=== PATIENT | male | born 1960 | race Caucasian/White ===

== ENCOUNTER 2022-01-16 11:04 | Outpatient (REF) | payer BC, SELFPAY ==
[2022-01-16 14:16] LABS: MANUAL DIFF FLAG NO
[2022-01-16 14:26] LABS: Basophils Absolute Auto 0.1 X10*3/uL (0.0-0.2); Basophils Percent Auto 0.4 % (0-2); Eosinophils Absolute Auto 0.2 X10*3/uL (0.0-0.4); Eosinophils Percent Auto 1.6 % (0-4); Hematocrit 44.9 % (42.0-52.0); Hemoglobin 15.8 g/dl (14.0-18.0); Imm Gran Abs Auto 0.05 X10*3/uL (0.00-0.03); Imm Gran Pct Auto 0.4 % (0.0-0.4); Lymphocytes Absolute Auto 1.4 X10*3/uL (1.2-4.9); Lymphocytes Percent Auto 12.5 % (20-40); Mean Corpuscular HGB Conc 35.2 g/dl (31.0-36.0); Mean Corpuscular Hemoglobin 31.1 pg (27.0-33.0); Mean Corpuscular Volume 88.4 fL (80.0-98.0); Mean Platelet Volume 9.9 fL (9.4-12.4); Monocytes Percent Auto 8.9 % (2-11); Neutrophils Absolute Auto 8.8 x10*3/uL (2.0-8.3); Neutrophils Percent Auto 76.2 % (45-73); Platelet Count 203 X10*3/uL (160-400); Red Blood Count 5.08 X10*6/uL (4.60-5.80); Red Cell Distribution Width 12.3 % (11.0-16.0); White Blood Count 11.5 X10*3/uL (4.8-10.8)
[2022-01-16 14:32] LABS: Estimated Average Glucose 94 mg/dL; Hemoglobin A1c % 4.9 %
[2022-01-16 14:43] LABS: Alanine Aminotransferase 29 U/L (0-40); Albumin Level 4.3 g/dL (3.5-5.0); Alkaline Phosphatase 67 U/L (39-117); Anion Gap 12 (12-20); Aspartate Amino Transferase 27 U/L (5-37); Bilirubin Total 0.6 mg/dL (0.0-1.0); Blood Urea Nitrogen 14 mg/dL (9-16); Calcium 9.5 mg/dL (8.4-10.2); Carbon Dioxide 30 mmol/L (22-29); Chloride 102 mmol/L (96-108); Cholesterol 191 mg/dL; Estimated Glomerular Filt Rate 58; Glucose Random 104 mg/dL (60-115); HDL Cholesterol 33 mg/dL; LDL Cholesterol Calculated 127 mg/dl; Potassium 4.2 mmol/L (3.3-5.1); Sodium 140 mmol/L (135-145); Total Protein 6.8 g/dL (6.5-8.0); Triglycerides 156 mg/dL
[2022-01-16 15:05] LABS: Thyroid Stimulating Hormone 1.53 uIU/mL (0.32-4.0)
[2022-01-18 09:22] LABS: Free Prostate Spec Ag 0.6 ng/mL; Percent Free Prostate Spec Ag 32 % (calc) (>25); Prostate Specific Ag Total 1.9 ng/mL (< OR = 4.0)
[2022-01-22 00:52] LABS: Lipoprotein A 16 nmol/L (<75)
== END 2022-01-16 11:05 | disposition home or self-care (01) ==
LOC: HO.MANLDS 11:04
PROVIDERS: Visit Provider Physician Assistant
DX: Z12.5 Encounter for screening for malignant neoplasm of prostate (principal); Z82.49 Family history of ischemic heart disease and other diseases of the circulatory system
CPT/HCPCS: 36415; 80053; 80061; 83036; 83695; 84154; 84439; 84443; 85025

== ENCOUNTER 2023-09-10 08:22 | Outpatient (REF) | payer BC, SELFPAY ==
[2023-09-10 13:43] LABS: MANUAL DIFF FLAG NO
[2023-09-10 13:50] LABS: Basophils Absolute Auto 0.1 X10*3/uL (0.0-0.2); Basophils Percent Auto 0.7 % (0-2); Eosinophils Absolute Auto 0.2 X10*3/uL (0.0-0.4); Hematocrit 46.4 % (42.0-52.0); Imm Gran Abs Auto 0.04 X10*3/uL (0.00-0.03); Imm Gran Pct Auto 0.6 % (0.0-0.4); Lymphocytes Absolute Auto 1.6 X10*3/uL (1.2-4.9); Lymphocytes Percent Auto 23.5 % (20-40); Mean Corpuscular HGB Conc 34.5 g/dl (31.0-36.0); Mean Corpuscular Hemoglobin 31.3 pg (27.0-33.0); Mean Corpuscular Volume 90.8 fL (80.0-98.0); Mean Platelet Volume 9.3 fL (9.4-12.4); Monocytes Absolute Auto 0.7 X10*3/uL (0.1-1.2); Monocytes Percent Auto 10.5 % (2-11); Neutrophils Absolute Auto 4.1 x10*3/uL (2.0-8.3); Neutrophils Percent Auto 61.7 % (45-73); Platelet Count 270 X10*3/uL (160-400); Red Blood Count 5.11 X10*6/uL (4.60-5.80); Red Cell Distribution Width 12.6 % (11.0-16.0); White Blood Count 6.7 X10*3/uL (4.8-10.8)
[2023-09-10 14:01] LABS: Alanine Aminotransferase 37 U/L (0-40); Albumin Level 4.2 g/dL (3.5-5.0); Alkaline Phosphatase 64 U/L (39-117); Anion Gap 12 (12-20); Aspartate Amino Transferase 35 U/L (5-37); Bilirubin Total 0.4 mg/dL (0.0-1.0); Blood Urea Nitrogen 13 mg/dL (9-16); Carbon Dioxide 29 mmol/L (22-29); Chloride 104 mmol/L (96-108); Cholesterol 213 mg/dL (<200); Estimated Glomerular Filt Rate 59; Glucose Random 89 mg/dL (60-115); HDL Cholesterol 36 mg/dL (>40); LDL Cholesterol Calculated 152 mg/dL (<100); Potassium 5.1 mmol/L (3.3-5.1); Sodium 140 mmol/L (135-145); Total Protein 7.2 g/dL (6.5-8.0); Triglycerides 128 mg/dL (<150)
[2023-09-10 14:21] LABS: Prostate Specific Antigen 4.63 ng/mL (<0.05-4.0)
== END 2023-09-10 08:23 | disposition home or self-care (01) ==
LOC: HO.MANLDS 08:22
PROVIDERS: Visit Provider Physician Assistant
DX: Z12.5 Encounter for screening for malignant neoplasm of prostate (principal); E78.5 Hyperlipidemia, unspecified
CPT/HCPCS: 36415; 80053; 80061; 84153; 85025

== ENCOUNTER 2024-08-13 09:12 | Outpatient (REF) | payer BC, SELFPAY ==
--- OUTSIDE RECORDS SUMMARY | 2024-08-13 09:47 | XMS_ITS | Continuity of Care Document ---
Author Organization [facility], [facility] Address [address] [facility] [place] [address] Assessment No assessment recorded. Plan of Treatment Reminders Order Date Submit Date Provider Last Modified By Organization Details Last Modified Time Details Appointments ANNUAL EXAM 2024 09:00A M MARTINE CRUZ Not available Not available Not available ANNUAL EXAM 2025 09:00A M MARTINE CRUZ Not available Not available Not available Lab CMP, serum or plasma 2024 025 [facility], [address] [place] [address], [id number], 08/13/2024 09:06:27 CBC w/ auto diff 2024 025 [facility], [address] [place] [address], [id number], 08/13/2024 09:06:28 lipid panel, blood 2024 025 [facility], [address] [place] [address], [id number], 08/13/2024 09:06:27 Referral None recorded . Procedures None recorded . Surgeries None recorded . Imaging None recorded . Medication Orders None recorded . Patient TargetsNo targets recorded. Patient InstructionsNo instructions recorded. Reason for Referral None Reported. Problems Name Problem SNOMED Code Status Onset Date Resolution Date Notes Provider Name and Address Organization Details Recorded Time Erectile dysfuncti on 038560951 Active 2021 MARTINE CRUZ [address] [place], [address], [facility] 2 10:43:03 Multiple benign melanocyt ic nevi 140934211 Active 2021 MARTINE CRUZ [address] [place], [address], [facility] 2 10:44:29 Hyperlipi demia 94581532 Active 2021 MARTINE CRUZ [address] [place], [address], [facility] 2 16:56:40 Glaucoma 60279032 Active 2022 MARTINE CRUZ [address] [place] [address], [address], [facility] 3 14:26:35 Basal cell carcinoma of skin 469382351 Active 2022 left ankle, removed by [place] DERM MARTINE CRUZ [address] [place] [address], [phone], [facility] 3 10:21:31 Problem Notes None recorded. Procedures Surgical History Date Name Laterality Status Provider Name and Address Organization Details Recorded Time thoracentesis completed MARTINE WALL [address] [place] [address], [phone], [facility] 01/11/2022 10:43:23 Imaging Results None recorded. Procedure Notes None recorded. Medical Equipment None Reported. Allergies No known drug allergies Medications Name Sig Start Date Stop Date Status Note LastModified by Organization Details LastModified Time zinc 50 mg tablets TAKE ONE TABLET BY MOUTH ONCE DAILY 01/11 completed Not Available Not Available Not Available ivermectin 3 mg tablet TAKE 5 TABLETS ON DAY 1 AND DAY 3 THEN EVERY 2 WEEKS DIRECTED BY THE DOCTOR. 01/11 completed Not Available Not Available Not Available mupirocin 2 % topical ointment APPLY TO AFFECTED AREA 3 TIMES A DAY 07/16 completed Not Available Not Available Not Available doxycycline hyclate 100 mg tablet TAKE 1 TABLET BY MOUTH TWICE A DAY DIRECTED FOR 10 DAYS 07/24 completed Not Available Not Available Not Available creatine daily - alternati ng months active Not Available Not Available No t Available sildenafil (antihypert ensive) 20 mg tablet Take 1 tablet 3 times a day by oral route as needed. 07/16 completed Not Available Not Available Not Available Vitals Date Recorded Body height Body mass index (BMI) Body weight Heart rate Oxygen saturation Oxygen saturation in Arterial blood by Pulse oximetry Systolic blood pressure Diastolic blood pressure Provider Name and Address Organization Details Last Updated DateTime 5 175.26 cm 25.7 kg/m2 04497.9 9 g 68 /min 96 % 96 % 118 mm[Hg] 78 mm[Hg] Floridalma Johann [facility] 5 08:59:29 Social History Question Answer Notes LastModified by Organizat ion Details LastModified Time Tobacco Smoking Status Never Smoker Cass renner [facility] 01/11/2022 10:29:56 Do You Have An Advance Directive? Yes Information n ot available 01/11/2022 What Is Your Level Of Alcohol Consumption? Occasional Information not available 01/11/2022 Are You Blind Or Do You Have Difficulty Seeing? No Information n ot available 01/11/2022 What Is Your Level Of Caffeine Consumption? Heavy Information not available 01/11/2022 In The 14 Days Before Symptom Onset, Have You Had Close Contact With A Laboratory-confirm ed COVID-19 While That Case Was Ill? No Information n ot available 01/11/2022 In The 14 Days Before Symptom Onset, Have You Had Close Contact With A Person Who Is Under Investigation For COVID-19 While That Person Was Ill? No Information not available 01/11/2022 Have You Been To An Area Known To Be High Risk For COVID-19? No Information not available 01/11/2022 Are You Currently Employed? Yes Information not available 01/11/2022 Are You Deaf Or Do You Have Serious Difficulty Hearing? No Information not available 01/11/2022 What Type Of Diet Are You Following? REGULAR Information n ot available 01/11/2022 What Is The Highest Grade Or Level Of School You Have Completed Or The Highest Degree You Have Received? [id number] Information not available 01/11/2022 How Many Days Of Moderate To Strenuous Exercise, Like A Brisk Walk, Did You Do In The Last 7 Days? 5 Information not available 01/11/2022 On Those Days That You Engage In Moderate To Strenuous Exercise, How Many Minutes, On Average, Do You Exercise? 5 Information not available 01/11/2022 Are There Any Guns Present In Your Home? No Information not available 01/11/2022 What Was The Date Of Your Most Recent Tobacco Screening? 08/13/2024 [email or web address] Information not available 08/13/2024 How Many Children Do You Have? 3 Information not available 01/11/2022 Do You Use Your Seat Belt Or Car Seat Routinely? Yes Information not available 01/11/2022 Are You Sexually Active? Yes Information not available 01/11/2022 Do You Have Smoke And Carbon Monoxide Detectors In Your Home? No Information not available 01/11/2022 Are You Passively Exposed To Smoke? No Information no t available 01/11/2022 Do You Feel Stressed (tense, Restless, Nervous, Or Anxious, Or Unable To Sleep At Night)? [id number] Information not available 01/11/2022 Do You Use Any Illicit Or Recreational Drugs? No Information not available 01/11/2022 Do You Use Sunscreen Routinely? No Information not available 01/11/2022 Sex: Male Functional Status Question Answer Note LastModified by Organizat ion Details LastModified Time Do you have difficulty walking or climbing stairs? No Information not available 01/11/2022 Are you able to walk? YESWOREST Information not available 01/11/2022 Do you have difficulty doing errands alone? No Information not available 01/11/2022 Are you able to care for yourself? Yes Information not available 01/11/2022 Do you have difficulty dressing or bathing? No Information not available 01/11/2022 What is your exercise level? None Information not available 01/11/2022 Mental Status Question Answer Note LastModified by Organization D etails LastModified Time Do you have difficulty concentrating, remembering or making decisions? No Information no t available 01/11/2022 Family History Relationship Description Onset Age of this Age Resolved Age Notes LastModified by Organization Details LastModified Time Father No current problems or disability [email or web address] Not available 01/11 10:51:12 Mother No current problems or disability [email or web address] Not available 01/11 10:51:12 Medical History No medical history recorded. Past Encounters Encounter ID Performer Location Encounter Start Date Encounter Closed Date Diagnosis/Indication Diagnosis SNOMED-CT Code Diagnosis ICD10 Code Diagnosis Note [id number] DO [facility] [address] [facility] [address] 08/13/2024 08:52:11 08/13/2024 09:08:43 Active or passive immunization 487430154 Z23 advised General ex amination of patient 574519071 Z00.00 will monitor BWon creatine which may impact his kidneys Health Concerns Section Related Observation LastModified by Organization Detai ls LastModified Time None Recorded Concern Status LastModified by Organization Details LastModified Time None Recorded Payers Encounter Date Sequence Insurance Name Policy Number Policy Maldonado Covered Member ID Maldonado Member ID Guarantor Name 08/13/2024 1 [facility] [facility] [place] [place] [id number] Peggy Li [id number] Peter Li Notes Date Note Type Note Provider Name a tn Address Organization Details Recorded Time 5 text/html Annual WellnessReported bypatient.Diet and Nutrition:healthy diet; discussed vitamin and supplement use; discussed portion control; discussed maintaining calcium balance; discussed diet improvement Fracture Risk:no history of fractures; no recent explained fracture; no sudden unexplained fractures; no previous musculoskeletal injuries Physical Activity:exercises on a regular basis; recent increase in physical activity; good physical condition Additional Lifestyle Factors:no tobacco use; no alcohol intake; stopped drinking alcohol Depression Risk:never feels sad, empty, or tearful; no loss of interest in activities; no significant changes in weight; no sleep disturbances or insomnia; no agitation; no loss of energy; no feelings of worthlessness or guilt; no thoughts of suicide; no history of depression; no history of mood disorders Hearing:no loss of hearing Vision:no vision problems; was 3 mos ago, checked outNotes:dentist appt was recent, no issues MARTINE CRUZ [address] [place] [address], [place], [address], [facility] 08/13/2024 09:08:42
--- OUTSIDE RECORDS SUMMARY | 2024-08-13 09:47 | XMS_ITS | Data Portability ---
Author Organization [facility] Address [address] [place] [address] Assessment No assessment recorded. Plan of Treatment Reminders Order Date Submit Date Provider Last Modified By Organization Details Last Modified Time Details Appointments ANNUAL EXAM 2024 09:00A M MARTINE CRUZ Not available Not available Not available ANNUAL EXAM 2025 09:00A M MARTINE CRUZ Not available Not available Not available Lab CMP, serum or plasma 2024 025 [facility], [address] [place] [address], [id number], 08/13/2024 09:06:27 CBC w/ auto diff 2024 025 [facility], [address] [place] [address], [id number], 08/13/2024 09:06:28 lipid panel, blood 2024 025 [facility], [address] [place] [address], [id number], 08/13/2024 09:06:27 CMP, serum or plasma 2023 024 [facility], [address] [place] [address], [id number], 09/11/2023 11:21:55 CBC w/ auto diff 2023 024 [facility], [address] [place] [address], [address], 09/11/2023 11:21:55 lipid panel, blood 2023 024 [facility], [address] [place] [address], [id number], 09/11/2023 11:21:55 PSA, serum or plasma 2023 024 [facility], [address] [place] [address], [id number], 09/11/2023 11:21:55 hemoglobi n A1c, QN, blood 2023 024 [facility], [address] [place] [address], [id number], 07/25/2023 09:19:09 CMP, serum or plasma 2022 023 [facility], [address] [place] [address], [address], 07/16/2022 10:30:42 CBC w/ auto diff 2022 023 [facility], [address] [place] [address], [id number], 07/16/2022 10:30:42 lipid panel, blood 2022 023 [facility], [address] [place] [address], [id number], 07/16/2022 10:30:43 lipoprote in-associ ated phospholi pase A2 (pla2), serum 2021 022 [facility], [address] [place] [address], [id number], 01/22/2022 13:12:10 lipid panel, blood 2021 022 [facility], [address] [place] [address], [address], 01/17/2022 12:35:56 CMP, serum or plasma 2021 [facility], [address] [place] [address], [place], [address], 01/17/2022 12:35:56 CBC w/ auto diff 2021 [facility], [address] [place] [address], [id number], 01/17/2022 12:35:56 TSH + free T4, serum 2021 [facility], [address] [place] [address], [id number], 01/17/2022 12:35:56 PSA, total + free, serum or plasma 2021 [facility], [address] [place] [address], [address], 01/18/2022 12:42:42 hemoglobi n A1c, QN, blood 2021 [facility], [address] [place] [address], [place], [address], 01/17/2022 12:35:56 Referral None recorded. Procedures None recorded. Surgeries None recorded. Imaging CT, coronary calcium score 2022 023 [facility], [place], [address], 07/17/2022 08:31:54 CT, coronary calcium score 2021 022 [email or web address] [address] [facility], [place], [address], 02/11/2022 08:25:30 Medication Orders None recorded. Patient TargetsNo targets recorded. Patient InstructionsNo instructions recorded. Reason for Referral None Reported. Results Created Date Observation Date Name Description Value Unit Range Abnormal Flag Note LastModifiedBy Organization Detail LastModifiedTime 09/26/19 23 09/25/2022 CT, coron pedro calci um score No observ ation record ed. [facility] [address] [place], [address], 09/25/2022 15:01:15 Result Notes None recorded. Problems Name Problem SNOMED Code Status Onset Date Resolution Date Notes Provider Name and Address Organization Details Recorded Time Erectile dysfuncti on 225641437 Active 2021 MARTINE CRUZ [address] [place], [address], [facility] 2 10:43:03 Multiple benign melanocyt ic nevi 497542241 Active 2021 MARTINE CRUZ [address] [place], [address], [facility] 2 10:44:29 Hyperlipi demia 04565936 Active 2021 MARTINE CRUZ [address] [place], [address], [facility] 2 16:56:40 Glaucoma 90538596 Active 2022 MARTINE CRUZ [address] [place], [address], [facility] 3 14:26:35 Basal cell carcinoma of skin 241500877 Active 2022 left ankle, removed by MARTINE BRIDGES [address] [place], [address], [facility] 3 10:21:31 Problem Notes None recorded. Procedures Surgical History Date Name Laterality Status Provider Name and Address Organization Details Recorded Time thoracentesis completed MARTINE WALL [address] [place], [address], [facility] 01/11/2022 10:43:23 Imaging Results Imaging Date Name Status LastModified by Organiz ation Details LastModified Time 09/25/2022 CT, coronary calcium score completed [facility] [address] [facility], [place], [address], 09/25/2022 15:01:15 Procedure Notes None recorded. Medical Equipment None [...] Available Not Available Vitals Date Recorded Body weight Body mass index (BMI) Body height Oxygen saturation Oxygen saturation in Arterial blood by Pulse oximetry Heart rate Systolic blood pressure Diastolic blood pressure Provider Name and Address Organization Details Last Updated DateTime 2 11288.3 3 g 27 kg/m2 175.26 cm 98 % 98 % 72 /min 110 mm[Hg] 60 mm[Hg] Cass Torres [facility] 2 10:37:46 Date Recorded Body height Body mass index (BMI) Body weight Heart rate Oxygen saturation Oxygen saturation in Arterial blood by Pulse oximetry Systolic blood pressure Diastolic blood pressure Provider Name and Address Organization Details Last Updated DateTime 3 175.26 cm 26.6 kg/m2 59083.6 3 g 78 /min 98 % 98 % 124 mm[Hg] 60 mm[Hg] Haleigh Modi [facility] 3 10:07:11 Date Recorded Body height Body mass index (BMI) Body weight Heart rate Oxygen saturation Oxygen saturation in Arterial blood by Pulse oximetry Systolic blood pressure Diastolic blood pressure Provider Name and Address Organization Details Last Updated DateTime 4 175.26 cm 26.7 kg/m2 00028.1 4 g 81 /min 98 % 98 % 120 mm[Hg] 68 mm[Hg] Scooter Mccarthy [facility] 4 09:02:05 Date Recorded Body height Body mass index (BMI) Body weight Heart rate Oxygen saturation Oxygen saturation in Arterial blood by Pulse oximetry Systolic blood pressure Diastolic blood pressure Provider Name and Address Organization Details Last Updated DateTime 5 175.26 cm 25.7 kg/m2 56832.9 9 g 68 /min 96 % 96 % 118 mm[Hg] 78 mm[Hg] Floridalma Johann [facility] 5 08:59:29 Social History Question Answer Notes LastModified by Organizat ion Details LastModified Time Tobacco Smoking Status Never Smoker [facility] [place] 01/11/2022 10:29:56 Do You Have [...] Or The Highest Degree You Have Received? [id number] Information not available 01/11/2022 How Many Days [...] Anxious, Or Unable To Sleep At Night)? EB1484-1 Information not available 01/11/2022 Do You Use [...] SNOMED-CT Code Diagnosis ICD10 Code Diagnosis Note [id number] Hiren Yeh [facility] [address] [facility] [place] [address] 01/11/2022 10:21:22 01/11/2022 11:54:59 Multiple benign melanocytic nevi 232674428 D22.4 sees [facility] his tory of Cardiovascular disease 727790915 Z82.49 will f/u with calcium score of the heart and full blood panel [id number] Hiren Yeh [facility] [address] [facility],[place] [address] 07/16/2022 09:52:38 07/16/2022 11:27:31 Active or passive immunization 579859420 Z23 advised Adult heal th examination 435085235 Z00.00 will monitor BWon creatine which may impact his kidneys Family his tory of Cardiovascular disease 995360700 Z82.49 will f/u with calcium score of the heart and full blood panel [id number] Hiren Yeh [facility] [address] [facility] [place] [address] 07/25/2023 08:55:10 07/25/2023 10:41:02 Active or passive immunization 351434570 Z23 advised Adult heal th examination 954138491 Z00.00 will monitor BWon creatine which may impact his kidneys [id number] Hiren Yeh [facility] [address] [facility] [address],[place] [address] 08/13/2024 08:52:11 08/13/2024 09:08:43 Active or passive immunization 789044329 Z23 advised General ex amination of patient 924034586 Z00.00 will monitor BWon creatine which may impact his kidneys Health Concerns Section Related Observation LastModified by Organization Detai ls LastModified Time None Recorded Concern Status LastModified by Organization Details LastModified Time None Recorded Advance Directives Directive Y: Payers Encounter Date Sequence Insurance Name Policy Number Policy Maldonado Covered Member ID Maldonado Member ID Guarantor Name 01/11/2022 1 [place] [employer] [place] ([facility] [place] [id number] Peggy Li [id number] Peter Guillermo 07/16/2022 1 [place] [id number] Peggy Li [id number] Peter Guillermo 07/25/2023 1 [place] [employer] [place]) [id number] Peggy Li [id number] Peter Li 08/13/2024 1 [place] [id number] Peggy Li [id number] Peter Li Notes Date Note Type Note Provider Name a nd Address Organization Details Recorded Time 2 text/html NPV moles: sees [facility] appt next week to check the moles on his head family hx of CAD: would like to get a calcium score of the heart given fam hx and personal risk factors (male over 50 years old, soon to be 62)will set up with sara hasn't had lab work in over 5 yearsncll set up with lab work with routine lab work appropriate for his age will fu with patient after both these tests no concerns today hx added to chart jacquesda MARTINE CRUZ [address] [place] [address], [place], [address], [facility] 01/11/2022 11:02:03 3 text/html Annual WellnessReported bypatient.Diet and Nutrition:healthy diet; discussed vitamin and supplement use; discussed portion control; discussed maintaining calcium balance; discussed diet improvement Fracture Risk:no history of fractures; no recent explained fracture; no sudden unexplained fractures; no previous musculoskeletal injuries Physical Activity:exercises on a regular basis; recent increase in physical activity; good physical condition; discussed weightbearing activities; discussed exercise habits Additional Lifestyle Factors:no tobacco use; drinks alcohol (mild-moderate) Depression Risk:never feels sad, empty, or tearful; no loss of interest in activities; no significant changes in weight; no sleep disturbances or insomnia; no agitation; no loss of energy; no feelings of worthlessness or guilt; no thoughts of suicide; no history of depression; no history of mood disorders Hearing:no loss of hearing; stable if it changes will call Vision:no vision problems; last eye exam was last year (6 mos ago) has a fu soon for a glaucoma test MARTINE CRUZ [address] [place], [address], [facility] 07/16/2022 10:33:02 4 text/html Annual WellnessReported bypatient.Diet and Nutrition:healthy diet; discussed vitamin and supplement use; discussed portion control; discussed maintaining calcium balance; discussed diet improvement; cutting our sugar Fracture Risk:no history of fractures; no recent explained fracture; no sudden unexplained fractures; no previous musculoskeletal injuries Physical Activity:exercises on a regular basis; recent increase in physical activity; good physical condition; discussed weightbearing activities; discussed exercise habits; very active Additional Lifestyle Factors:no tobacco use; drinks alcohol (mild-moderate); discussed safe sex and STI risk; preconception/concept ion counseling given Depression Risk:never feels sad, empty, or tearful; no loss of interest in activities; no significant changes in weight; no sleep disturbances or insomnia; no agitation; no loss of energy; no feelings of worthlessness or guilt; no thoughts of suicide; no history of depression; no history of mood disorders Hearing:no loss of hearing; a little less, but nothing serious Vision:no vision problems; up to dateNotes:up to date with dentist MARTINE CRUZ [address] [place], [address], [facility] 07/25/2023 09:11:51 5 text/html Annual WellnessReported bypatient.Diet and Nutrition:healthy [...] appt was recent, no issues MARTINE CRUZ [address] [place] [address], [place], [address], [facility] 08/13/2024 09:08:42
[2024-08-13 13:25] LABS: MANUAL DIFF FLAG NO
[2024-08-13 13:51] LABS: Basophils Absolute Auto 0.1 X10*3/uL (0.0-0.2); Basophils Percent Auto 0.8 % (0-2); Eosinophils Absolute Auto 0.4 X10*3/uL (0.0-0.4); Eosinophils Percent Auto 5.6 % (0-4); Hemoglobin 17.4 g/dl (14.0-18.0); Imm Gran Abs Auto 0.02 X10*3/uL (0.00-0.03); Imm Gran Pct Auto 0.3 % (0.0-0.4); Lymphocytes Absolute Auto 1.9 X10*3/uL (1.2-4.9); Lymphocytes Percent Auto 26.5 % (20-40); Mean Corpuscular HGB Conc 35.5 g/dl (31.0-36.0); Mean Corpuscular Hemoglobin 31.7 pg (27.0-33.0); Mean Corpuscular Volume 89.3 fL (80.0-98.0); Mean Platelet Volume 9.7 fL (9.4-12.4); Monocytes Absolute Auto 0.8 X10*3/uL (0.1-1.2); Monocytes Percent Auto 11.4 % (2-11); Neutrophils Percent Auto 55.4 % (45-73); Platelet Count 195 X10*3/uL (160-400); Red Blood Count 5.49 X10*6/uL (4.60-5.80); Red Cell Distribution Width 12.1 % (11.0-16.0); White Blood Count 7.1 X10*3/uL (4.8-10.8)
[2024-08-13 14:00] LABS: Alanine Aminotransferase 28 U/L (0-40); Albumin Level 4.3 g/dL (3.5-5.0); Alkaline Phosphatase 69 U/L (39-117); Anion Gap 13 (12-20); Aspartate Amino Transferase 34 U/L (5-37); Bilirubin Total 0.6 mg/dL (0.0-1.0); Blood Urea Nitrogen 18 mg/dL (9-16); Calcium 9.8 mg/dL (8.4-10.2); Carbon Dioxide 28 mmol/L (22-29); Chloride 103 mmol/L (96-108); Cholesterol 241 mg/dL (<200); Estimated Glomerular Filt Rate 56; Glucose Random 93 mg/dL (60-115); HDL Cholesterol 42 mg/dL (>40); LDL Cholesterol Calculated 182 mg/dL (<100); Potassium 5.5 mmol/L (3.3-5.1); Sodium 138 mmol/L (135-145); Total Protein 7.4 g/dL (6.5-8.0); Triglycerides 88 mg/dL (<150)
== END 2024-08-13 09:13 | disposition home or self-care (01) ==
LOC: HO.MANLDS 09:12
PROVIDERS: Visit Provider Physician Assistant
DX: Z00.00 Encounter for general adult medical examination without abnormal findings (principal); Z13.6 Encounter for screening for cardiovascular disorders
CPT/HCPCS: 36415; 80053; 80061; 85025